=== PATIENT | male | born 2000 | race Caucasian/White ===

== ENCOUNTER 2025-07-10 21:49 | Emergency (ER) | payer SELFPAY ==
[~2025-07-10] VITALS: Ht 175.3 cm; Wt 87.0 kg
[2025-07-10 21:59] VITALS: TEMP 98.7; O2SAT 99
[2025-07-10] MEDS: SODIUM CHLORIDE 0.9% 1,000 ML IV ONE (22:59)
[2025-07-10] MEDS: ONDANSETRON HCL 4MG/2ML INJ IV ONE (22:59)
[2025-07-10 23:07] LABS: BASOPHILS % 0.3 % (0.0-2.0); EOSINOPHILS % 0.5 % (0.0-5.0); HEMATOCRIT. 46.5 % (42.0-52.0); HEMOGLOBIN. 15.2 g/dL (14.0-18.0); LYMPHOCYTES % 10.6 % (20.0-50.0); MEAN PLATELET VOLUME 7.1 fl (7.4-10.4); MONOCYTES % 4.9 % (2.0-8.0); NEUTROPHILS % 83.7 % (40.0-76.0); PLATELET 276 x1000/uL (130-400); RED BLOOD CELL COUNT 5.15 mill/uL (4.7-6.1); RED CELL DISTRIBUTION WIDTH 14.1 % (11.6-14.6)
[2025-07-10 23:14] LABS: CREATININE 1.1 mg/dL (0.6-1.3)
[2025-07-10 23:15] LABS: ETHANOL BLOOD 190 mg/dL (<10); UREA NITROGEN BLOOD 9 mg/dL (9-23)
[2025-07-11 00:25] VITALS: BP 120/63; PULSE 92; RESP 15; O2SAT 99
== END 2025-07-11 01:12 | disposition home or self-care (01) ==
LOC: ER 21:49 → CMPBEDREQ 07-11 07:29
DX: T51.0X1A Toxic effect of ethanol, accidental (unintentional), initial encounter (principal); F10.129 Alcohol abuse with intoxication, unspecified; R41.82 Altered mental status, unspecified; Y90.6 Blood alcohol level of 120-199 mg/100 ml
CPT/HCPCS: 80048; 80320; 85025; 36415; 71045; 96361; 96374; 99291; J2405; J7030; G0480